=== PATIENT | female | born 1990 | race Hispanic/Latino ===

== ENCOUNTER 2022-05-10 16:07 | Emergency (ER) | payer OTHER ==
[~2022-05-10] VITALS: Ht 154.9 cm; Wt 90.7 kg
[2022-05-10] MEDS ORDERED: ONDANSETRON ODT 4MG TAB SL ONE (16:30)
[2022-05-10 16:54] VITALS: BP 129/89
[2022-05-10] MEDS ORDERED: KETOROLAC 30MG VIAL (30MG/ML) IM ONE (18:30)
[2022-05-10] MEDS ORDERED: IBUP-2070 PO (18:37)
== END 2022-05-10 18:58 | disposition home or self-care (01) ==
LOC: EDH 16:07
DX: M54.2 Cervicalgia (principal); R51.9 Headache, unspecified; V98.8XXA Other specified transport accidents, initial encounter; Y93.I9 Activity, other involving external motion; Y92.488 Other paved roadways as the place of occurrence of the external cause; Y99.8 Other external cause status
CPT/HCPCS: 99285; 70450; 72125; 96372; J1885